=== PATIENT | male | born 1935 | race Hispanic/Latino ===

== ENCOUNTER 2016-07-19 02:08 | Emergency (ER) | payer MEDICARE, OTHER ==
[2016-07-19 02:12] VITALS: BMI 34.2
--- NOTE | 2016-07-19 02:14 | ED PDOC ---
Arrival/HPI - General Time Seen by Provider: 07/19/16 02:13 Historian: Patient - History of Present Illness Narrative History of Present Illness (Text): 07/19/16 02:13 Jakub Babcock is an 80 year old male, whose past medical history includes atrial fibrillation, who presents to the Emergency department complaining of bleeding for an abrasion to the left forearm. Patient states he picked a scab off an old abrasion on his left forearm since 19:00 and has been experiencing bleeding from the abrasion since then. Patient states he regularly take Coumadin and is scheduled to have his INR level checked next week. Patient denies any changes in Coumadin dose, diet changes, fall/trauma, headache, dizziness, or any other complaints. Time/Duration: 4-6 hours (19:00) Symptom Onset: Gradual Symptom Course: Unchanged Activities at Onset: Rest, Light Context: Home Past Medical History - Provider Review Nursing Documentation Reviewed: Yes - Cardiac Hx Hypertension: No - Pulmonary Hx Chronic Obstructive Pulmonary Disease (COPD): No - Neurological Hx Transient Ischemic Attacks (TIA): No - HEENT Hx HEENT Disorder: No Hx Blind: No Hx Cataracts: No Hx Deafness: No Hx Difficulty Chewing: No Hx Epistaxis: No Hx Glaucoma: No Hx Macular Degeneration: No - Renal Hx Renal Failure: No - Endocrine/Metabolic Hx Diabetes Mellitus Type 1: No Hx Diabetes Mellitus Type 2: No - Hematological/Oncological Hx Blood Disorders: No Hx AIDS: No Hx Anemia: No Hx Cancer: No Hx Chemotherapy: No Hx Cirrhosis: No Hx Hemophilia: No Hx Hepatitis A: No Hx Hepatitis B: No Hx Hepatitis C: No Hx Metastasis: No Hx Shingles: No Hx Sickle Cell Disease: No Hx Unexplained Bleeding: No - Integumentary Hx Dermatological Disorder: No Hx Basal Cell Carcinoma: No Hx Eczema: No Hx Melanoma: No Hx Psoriasis: No Hx Squamous Cell Carcinoma: No - Musculoskeletal/Rheumatological Hx Arthritis: No - Gastrointestinal Hx Gastrointestinal Disorders: No Hx Colostomy: No Hx Crohn's Disease: No Hx Diverticulitis: No Hx Gall Bladder Disease: No Hx Gastroesophageal Reflux: No Hx Gastrointestinal Ulcer: No Hx Ileostomy: No Hx Liver Failure: No Hx Pancreatitis: No HX Swallowing Problems: No - Genitourinary/Gynecological Hx Genitourinary Disorders: No Hx Hematuria: No Hx Incontinence: No Hx Prostate Problems: No Hx Sexually Transmitted Diseases: No Hx Urinary Tract Infection: No - Psychiatric Hx Substance Use: No - Surgical History Hx Orthopedic Surgery: (y; bilat THR) - Anesthesia Hx Anesthesia Reactions: No Family/Social History - Physician Review Nursing Documentation Reviewed: Yes Family/Social History: No Known Family HX Smoking Status: no Hx Alcohol Use: No Hx Substance Use: No Allergies/Home Meds Allergies/Adverse Reactions: Allergies NSAIDS (Non-Steroidal Anti-Inflamma Allergy (Verified 03/23/15 01:54) RASH Home Medications: Home Meds Medication Instructions Recorded Confirmed Digoxin [Lanoxin] 0.25 mg PO DAILY 03/23/15 03/23/15 Finasteride 5 mg PO DAILY 03/23/15 03/23/15 Losartan/Hydrochlorothiazide 1 each PO DAILY 03/23/15 03/23/15 [Losartan-Hctz 50-12.5 mg Tab] Tamsulosin HCl [Flomax] 0.4 mg PO DAILY 03/23/15 03/23/15 Warfarin [Coumadin] 3 mg PO DAILY 03/23/15 03/23/15 Review of Systems - Physician Review All systems were reviewed & negative as marked: Yes - Review of Systems Constitutional: Normal. absent: Fevers Eyes: Normal ENT: Normal Respiratory: Normal. absent: SOB, Cough Cardiovascular: Normal. absent: Chest Pain Gastrointestinal: Normal. absent: Abdominal Pain, Diarrhea, Nausea, Vomiting Genitourinary Male: Normal. absent: Dysuria, Frequency, Hematuria, Urinary Output Changes Musculoskeletal: Normal. absent: Back Pain, Neck Pain Skin: Other (+bleeding abrasion from left forearm) Neurological: Normal. absent: Headache, Dizziness Endocrine: Normal Hemo/Lymphatic: Normal Psychiatric: Normal Physical Exam Vital Signs Reviewed: Yes Vital Signs Temp Pulse Resp BP Pulse Ox 07/19/16 03:56 64 16 151/61 H 100 07/19/16 02:15 97.7 F 85 16 121/75 100 Temperature: Afebrile Blood Pressure: Normal Pulse: Regular Respiratory Rate: Normal Appearance: Positive for: Well-Appearing, Non-Toxic, Comfortable Pain Distress: None Mental Status: Positive for: Alert and Oriented X 3 - Systems Exam Head: Present: Atraumatic, Normocephalic Pupils: Present: PERRL Extroacular Muscles: Present: EOMI Conjunctiva: Present: Normal Mouth: Present: Moist Mucous Membranes Neck: Present: Normal Range of Motion Respiratory/Chest: Present: Clear to Auscultation, Good Air Exchange. No: Respiratory Distress, Accessory Muscle Use Cardiovascular: Present: Regular Rate and Rhythm, Normal S1, S2. No: Murmurs Abdomen: Present: Normal Bowel Sounds. No: Tenderness, Distention, Peritoneal Signs Upper Extremity: Present: Other (Abrasion to left forearm). No: Cyanosis, Edema Lower Extremity: Present: Normal Inspection. No: Edema Neurological: Present: GCS=15, CN II-XII Intact, Speech Normal Skin: Present: Warm, Dry, Normal Color, Abrasion (Abrasion to left forearm). No : Rashes Psychiatric: Present: Alert, Oriented x 3, Normal Insight, Normal Concentration Medical Decision Making ED Course and Treatment: 07/19/16 02:13 Impression: 80 year old male complaining of bleeding from an old abrasion since 19:00. Plan: -- Silver Nitrate Cautery -- Labs -- Reassess and disposition Progress Notes: PROCEDURE: Silver Nitrate Cautery Performed by the emergency provider Consent: Informed consent was obtained after discussion of the risks, benefits, and alternatives to the procedure. Timeout: A timeout to verify the correct patient, procedure, and site was performed immediately prior to the procedure. Indication: Bleeding Location: Left forearm abrasion Cautery: Silver Nitrate Post-procedure: Good hemostasis. dermabond was placed over the wound The patient was observed following procedure and no repeat episode of bleeding was noted. Patient tolerated the procedure well with no immediate complications. Post procedure dressing applied. 07/19/16 03:50 On re-evaluation, the patient feels better and is in no acute distress. I have discussed the results and plan with the patient, who expresses understanding. Patient in agreement with plan to discharged home. Patient is stable for discharge. Patient was instructed to follow up with physician/clinic in 1-2 days or return if symptoms worsen or new concerning symptoms arise. 07/20/16 06:10 - Lab Interpretations Lab Results: Lab Results 07/19/16 02:40: PT 27.7 H, INR 2.56 H - Scribe Statement The provider has reviewed the documentation as recorded by the Scribmarita Hook All medical record entries made by the Scribe were at my direction and personally dictated by me. I have reviewed the chart and agree that the record accurately reflects my personal performance of the history, physical exam, medical decision making, and the department course for this patient. I have also personally directed, reviewed, and agree with the discharge instructions and disposition. Disposition/Present on Arrival - Present on Arrival Any Indicators Present on Arrival: No History of DVT/PE: No History of Uncontrolled Diabetes: No Urinary Catheter: No History Surgical Site Infection Following: None - Disposition Have Diagnosis and Disposition been Completed?: Yes Diagnosis: Wound of left upper extremity Disposition: HOME/ ROUTINE Disposition Time: 04:30 Condition: GOOD Discharge Instructions (ExitCare): Acute Wound Care (ED), Skin Adhesive Care ( ED)
[2016-07-19 02:18] VITALS: RESP 16; TEMP 97.7; O2SAT 100
[2016-07-19 03:10] LABS: INR 2.56 (0.93-1.08)
[2016-07-19 03:58] VITALS: BP 151/61; PULSE 64
== END 2016-07-19 04:30 | disposition home or self-care (01) ==
LOC: ED 02:08
DX: S50.812A Abrasion of left forearm, initial encounter (principal); X58.XXXA Exposure to other specified factors, initial encounter; I48.91 Unspecified atrial fibrillation; Z79.01 Long term (current) use of anticoagulants